=== PATIENT | male | born 1930 | race Caucasian/White ===

== ENCOUNTER → 2017-02-27 | Outpatient (CLI) | payer MEDICARE, BC ==
--- NOTE | 2017-02-27 16:09 | RAD ---
Indication:Vomiting Grayscale images of the abdomen were obtained. Comparison none Liver:The visualized liver appears unremarkable. No focal mass is seen Gallbladder:Minimally distended but otherwise unremarkable. No gallstones seen. The common bile duct diameter of approximately 6 mm is normal Spleen:Normal Pancreas:Poorly visualized and largely obscured by gas Kidneys:Apart from a 1.5 cm cyst in the left kidney kidneys appear unremarkable. Abdominal aorta and IVC:Normal Ancillary findings:Moderate distention of the urinary bladder was incidentally noted during the exam Impression:No acute or significant finding in the abdomen. Small left renal cyst. Midline structures partially obscured. Distended urinary bladder
== END | disposition home or self-care (01) ==
LOC: US 13:55
PROVIDERS: ATTEND Family Medicine
DX: N28.1 Cyst of kidney, acquired (principal); N32.89 Other specified disorders of bladder; K82.8 Other specified diseases of gallbladder
CPT/HCPCS: 76700

== ENCOUNTER → 2019-10-24 | Outpatient (CLI) | payer BC, MEDICARE, OTHER | END | disposition home or self-care (01) | LOC: LAB 13:55 | PROVIDERS: ATTEND Registered Nurse | DX: Z11.59 Encounter for screening for other viral diseases (principal) | CPT/HCPCS: 87635; C9803-CS; U0003-CS ==

== ENCOUNTER 2021-05-19 05:16 | Emergency (ER) | payer OTHER ==
[~2021-05-19] VITALS: Ht 181.6 cm; Wt 108.8 kg
--- NOTE | 2021-05-19 06:26 | PHYS DOC ---
Past History Additional Past Medical Histor: enlarged prostate, hernia Past Surgical History: Appendectomy, Other Additional Past Surgical Histo: right knee surgery, hernia repair Alcohol Use: Occasionally General Adult EDM: Chief Complaint: MECHANICAL FALL HPI: HPI: 61-year-old male presents with right shoulder pain. The patient got up in the night to go use the restroom and tripped over something on the floor. He fell on his right shoulder and that is what is causing him pain at this time. It is painful to abduct the arm. It is not significantly tender to palpation. He states that the pain feels like a deep cramping. He denies numbness, tingling, or altered sensation. He has no other complaints at this time. Review of Systems: Review of Systems: Constitutional: Denies fever or chills Eyes: Denies change in visual acuity HENT: Denies nasal congestion or sore throat Respiratory: Denies cough or shortness of breath Cardiovascular: Denies chest pain or edema GI: Denies abdominal pain, nausea, vomiting, bloody stools or diarrhea : Denies dysuria Musculoskeletal: Right shoulder pain Integument: Denies rash Neurologic: Denies headache, focal weakness or sensory changes Endocrine: Denies polyuria or polydipsia Lymphatic: Denies swollen glands Psychiatric: Denies depression or anxiety Allergies: Allergies: Allergies Coded Allergies Type Severity Reaction Last Updated Verified No Known Drug Allergies 05/19/21 No Physical Exam: PE: Constitutional: Well developed, well nourished, no acute distress, non-toxic appearance. [] HENT: Normocephalic, atraumatic, bilateral external ears normal, oropharynx moist, no oral exudates, nose normal. [] Eyes: PERRLA, EOMI, conjunctiva normal, no discharge. [] Neck: Normal range of motion, no tenderness, supple, no stridor. [] Cardiovascular:Heart rate regular rhythm, no murmur [] Lungs & Thorax: Bilateral breath sounds clear to auscultation [] Abdomen: Bowel sounds normal, soft, no tenderness, no masses, no pulsatile masses. [] Skin: Warm, dry, no erythema, no rash. [] Back: No tenderness, no CVA tenderness. [] Extremities: No tenderness, no obvious deformity, pain with active abduction, no pain with passive. No bicep tendon pain. [] Neurologic: Alert and oriented X 3, normal motor function, normal sensory function, no focal deficits noted. [] Psychologic: Affect normal, judgement normal, mood normal. [] Current Patient Data: Vital Signs: Vital Signs Date Time Temp Pulse Resp B/P (MAP) Pulse Ox O2 Delivery O2 Flow Rate FiO2 05/19/21 05:30 98.3 93 18 148/90 (109) 100 Room Air EKG: EKG: [] Radiology/Procedures: Radiology/Procedures: [] Heart Score: C/O Chest Pain: N/A Risk Factors: Risk Factors: DM, Current or recent (<one month) smoker, HTN, HLP, family history of CAD, obesity. Risk Scores: Score 0 - 3: 2.5% MACE over next 6 weeks - Discharge Home Score 4 - 6: 20.3% MACE over next 6 weeks - Admit for Clinical Observation Score 7 - 10: 72.7% MACE over next 6 weeks - Early Invasive Strategies Course & Med Decision Making: Course & Med Decision Making Pertinent Labs and Imaging studies reviewed. (See chart for details) The patient's x-ray is negative for fracture or dislocation. Based on the patient's mechanism and symptoms I suspect he either has a partial supraspinatus tear and/or mild disruption of the AC joint. These should heal with conservative care. I have advised ibuprofen, Voltaren, and lidocaine patches as needed. The patient is stable for discharge at this time. [] Dragon Disclaimer: Dragon Disclaimer: This electronic medical record was generated, in whole or in part, using a voice recognition dictation system. Departure Departure: Impression: Primary Impression: Derangement of right acromioclavicular joint Additional Impression: Shoulder pain, acute Qualified Codes: M25.511 - Pain in right shoulder Disposition: HOME / SELF CARE / HOMELESS Condition: STABLE Referrals: NICOLE AYERS MD (PCP) Patient Instructions: Acromioclavicular Separation with [facility] PAOLA MARTIN DO May 19, 2021 06:26
[2021-05-19 06:36] VITALS: BP 129/82
--- NOTE | 2021-05-19 06:41 | RAD ---
INDICATION: Reason: fall c/o right shoulder pain / Spl. Instructions: / History: COMPARISON: None. IMPRESSION: Right shoulder: 4 views obtained. No definite acute fracture or dislocation. Electronically signed by: Cayden Atkinson MD (05/19/2021 6:39 AM) [id number]
== END 2021-05-19 06:51 | disposition home or self-care (01) ==
LOC: ER 05:16
DX: M24.811 Other specific joint derangements of right shoulder, not elsewhere classified (principal)
CPT/HCPCS: 73030; 99283-25